=== PATIENT | male | born 1945 | race Caucasian/White ===

== ENCOUNTER 2017-06-30 09:18 | Day surgery (SDC) | payer OTHER ==
[2017-06-30] MEDS ORDERED: MIDAZOLAM 1 MG/ML 2 ML INJ (11:23)
[2017-06-30] MEDS ORDERED: FENTAnyl 50 MCG/ML VIAL (11:24)
== END 2017-06-30 11:34 | disposition home or self-care (01) ==
LOC: GIL 09:18
DX: Z12.11 Encounter for screening for malignant neoplasm of colon (principal); D12.5 Benign neoplasm of sigmoid colon; K29.60 Other gastritis without bleeding; K64.8 Other hemorrhoids; I10 Essential (primary) hypertension; E11.9 Type 2 diabetes mellitus without complications; G40.909 Epilepsy, unspecified, not intractable, without status epilepticus
CPT/HCPCS: 43239; 82962; 88305; 88312